=== PATIENT | female | born 1980 | race Two or more races ===

== ENCOUNTER 2018-11-18 11:19 | Emergency (ER) | payer BC, MEDICAID ==
[~2018-11-18] VITALS: Ht 154.9 cm; Wt 68.0 kg
[2018-11-18 11:24] VITALS: BP 127/82
== END 2018-11-18 11:49 | disposition home or self-care (01) ==
LOC: ER 11:19
DX: T81.30XA Disruption of wound, unspecified, initial encounter (principal); J45.909 Unspecified asthma, uncomplicated; Z98.890 Other specified postprocedural states; Z90.49 Acquired absence of other specified parts of digestive tract